=== PATIENT | female | born 1990 | race Caucasian/White ===

== ENCOUNTER 2017-07-20 22:53 | Inpatient (IN) ==
[2017-07-20] MEDS ORDERED: Ondansetron 4 MG/2 ML VIAL IVP PRN (22:56)
[2017-07-20] MEDS ORDERED: Famotidine 20 MG/2 ML VIAL IVP PRN (22:56)
[2017-07-20] MEDS ORDERED: Naloxone 0.4 MG/ML INJ IVP PRN (22:56)
[2017-07-20] MEDS ORDERED: Penicillin G Potassium 5,000,000 UNIT in 0.9 % Sodium Chloride Mini Bag 100 ML IVPB ONE (22:58)
[2017-07-20 23:48] LABS: Basophils # 0.1 K/mcL (0.0-0.2); Basophils % 0.4 %; Eosinophils # 0.2 K/mcL (0.0-0.6); Eosinophils % 1.1 %; Hematocrit 37.6 % (35.3-44.9); Hemoglobin 12.4 g/dL (11.5-15.4); Immature Granulocytes % 1.6 % (0-4); Lymphocytes # 3.3 K/mcL (0.6-4.6); Lymphocytes % 21.6 %; Mean Corpuscular Hemoglobin 27.3 pg (28.0-33.3); Mean Corpuscular Volume 82.8 fL (83.0-100.0); Mean Platelet Volume 9.9 fL (9.4-12.4); Monocytes # 1.1 K/mcL (0.0-1.3); Monocytes % 6.9 %; Neutrophils # 10.5 K/mcL (1.6-8.9); Platelet Count 336 K/mcL (140-400); Red Blood Count 4.54 M/mcL (3.82-4.97); Segmented Neutrophils % 68.4 %
--- NOTE | 2017-07-20 23:50 | OB/GYN History & Physical ---
Date of Encounter: 07/20/17 Time of Encounter: 23:48 Assessment and Plan (1) 39 weeks gestation of Current visit: Yes Status: Acute Patient admitted for delivery (2) Group B streptococcal infection during Current visit: Yes Status: Acute GBS prophylaxis started on admission History of Present Illness Chief complaint: Scheduled IOL HPI: Ms. Spaulding is a 27 year old female at 39w0d presents to labor and delivery for scheduled IOL. Patient reports +FM and irregular contractions. Patient denies LOF or vaginal bleeding. Patient's has been uncomplicated. Patient has medical history of Tachycardia and has been seen during by cardiology. Blood type: O+, Rubella: Immune, Hep B: Nonreactive, GBS: Positive. GBS prophylaxis started. Past Med Surg Social Fam HX - Past Medical History Source: patient Medical history: other Psychiatric history: no psych history - Past Surgical History Surgical History: cholecystectomy - Social History Smoking Status: Never smoker Smokeless Tobacco Status: No Alcohol use: none Drug use: none Occupational status: employed Current living situation: Home - Independent Activity Level: Independent ambulation Recent Out of Country Travel Within the Last 8 Weeks: No Exposure or Possible Exposure to Illness During Travel: No - Family History Mother Family Member Ethnicity: Non- Living Status: Still Living Hx Family Cardiac Disorders: No Hx Family Respiratory Disorders: No Hx Family Cancer: No Hx Family GI Disorders: No Hx Family Endocrine Disorder: No Hx Family Neuromuscular Disorders: No Hx Family Neurologic Disorders: No Hx Family HEENT Disorders: No Hx Family Autoimmune Disorders: No Obstetrical History - Pregnancies : 1 Para: 0 Term: 0 : 0 Ab's: 0 Livin Medications and Allergies Levocetirizine Dihydrochloride 5 mg PO DAILY 07/14/17 [History] Metoprolol 25 mg PO BID 07/14/17 [History] Montelukast [Singulair] 10 mg PO DAILY 07/14/17 [History] #108/Iron,Carbonyl/FA 1 tab PO DAILY 07/14/17 [History] Ranitidine HCl [Zantac] 150 mg PO DAILY 07/14/17 [History] 3 Allergy/AdvReac Type Severity Reaction Status Date / Time hydrocodone Allergy Itching Verified 07/20/17 23:19 Review of System OB - Constitutional Constitutional ROS IM: no chills, no fatigue, no fever(s), no headache(s) - Cardiovascular Cardiovascular: no chest pain, no lightheadedness, no palpitations, no rapid heart rate, no syncope - Respiratory Respiratory: no cough, no dyspnea - Gastrointestinal Gastrointestinal: no abdominal pain, no cramping, no diarrhea, no heartburn, no vomiting - Genitourinary Genitourinary: no abnormal vaginal bleeding, no dysuria, no flank pain, no urinary frequency, no vaginal discharge, no vaginal odor, no vaginal pruritis Exam - Vital Signs Vital signs: Initial Vital Signs Pulse Resp BP 101 16 113/78 07/20/17 23:05 07/20/17 23:05 07/20/17 23:05 - Constitutional Constitutional: well developed, well nourished, no acute distress, average body habitus - HEENT HEENT: Normocephaly, Mucus Membranes Moist - Neck Neck exam: full ROM, supple - Lungs Respiratory exam: CTAB - Cardiovascular Cardiovascular exam: RRR, +S1, +S2 - Abdomen Abdomen: Present: bowel sounds normal, gravid, non tender - Extremities Extremities exam: full ROM, normal capillary refill, normal inspection Deep Tendon Reflex Grade: 2+ Normal - Vagina Vagina: Present: normal moisture - Cervix Dilation: 2 Effacement: 80 Station: -2 - Uterus Uterus exam: Present: normal size, normal contour - Anus/Rectum Anus/Rectum: Present: normal perianal skin - Comments Comments: FHR 135 bpm moderate variability +15x15 accels no decels noted. CAt. 1 tracing. Contractions irregular. Results All other labs normal. - VTE Reasons for not Prescribing Prophylaxis: Treatment not Indicated - Low risk for VTE
[2017-07-20] MEDS: Ringers Solution, Lactated 1,000 ML IVC SCH (23:52)
[2017-07-20] MEDS: Penicillin G Potassium 2,500,000 UNIT in D5% in Water 100 ML IVPB SCH (23:52)
--- NOTE | 2017-07-21 00:13 | Anesthesia Evaluation PreOp ---
Date of Encounter: 07/21/17 Time of Encounter: 23:42 - Past History Planned Operation: vaginal del, , G1 induction 39wk Cardiac History: Arrhythmia (tachycardia managed on metoprolol, METs>4 without comp,) Pulmonary History: Denies Any Significant HX TREE SURGEON History: Denies Any Significant HX Other Medical History: Denies Any Significant HX Anesthesia History: No Prior Anesthetic Complications, Past Anesthesia Alcohol Use: none Drug use: none Medications and Allergies Levocetirizine Dihydrochloride 5 mg PO DAILY 07/14/17 [History] Metoprolol 25 mg PO BID 07/14/17 [History] Montelukast [Singulair] 10 mg PO DAILY 07/14/17 [History] #108/Iron,Carbonyl/FA 1 tab PO DAILY 07/14/17 [History] Ranitidine HCl [Zantac] 150 mg PO DAILY 07/14/17 [History] 3 Allergy/AdvReac Type Severity Reaction Status Date / Time hydrocodone Allergy Itching Verified 07/20/17 23:19 Anesthesia Results - Labs 07/20/17 23:40 Anesthesia Exam - HEENT Pupil (Motor): Pupils equal Mallampati: II Teeth: Normal Oral Opening: Greater than 3 - TREE SURGEON LOC: Oriented TREE SURGEON Motor: Normal RUE, Normal LUE, Normal RLE, Normal LLE, Normal Face TREE SURGEON Sensory: Normal: RUE, LUE, RLE, LLE, Face - Cardiac Rhythm: Regular Murmur: None - Pulmonary Breath Sounds: bilateral Clear Respiratory Effort: Symmetrical Anesthesia Assess/Plan ASA Score: 2 Modified Karol Scale for Level of Consciousness: Cooperative, oriented, and tranquil Anesthetic Plan: General, Regional Monitoring Plan: Standard Monitors
[2017-07-21 00:16] LABS: Amphetamine Screen,Urine Negative ng/mL (Cutoff=1000); Barbiturate Screen,Urine Negative ng/mL (Cutoff=200); Benzodiazepines Screen,Urine Negative ng/mL (Cutoff=200); Cannabinoid Screen,Urine Negative ng/mL (Cutoff = 50); Cocaine Screen,Urine Negative ng/mL (Cutoff= 300); Opiate Screen,Urine Negative ng/mL (Cutoff=300); Phencyclidine Screen,Urine Negative ng/mL (Cutoff=25)
[2017-07-21] MEDS ORDERED: miSOPROStol 100 MCG TABLET PO STA (00:50)
[2017-07-21] MEDS ORDERED: *HR* Nalbuphine 20 MG/ML AMPUL IVP PRN (01:37)
[2017-07-21] MEDS: Penicillin G Potassium 2,500,000 UNIT in D5% in Water 100 ML IVPB SCH ×3 (04:18→12:53)
[2017-07-21] MEDS ORDERED: Oxytocin 20 units/ LR 1000 mL 20 UNIT/1,000 ML BAG IVC SCH ×2 (06:45→17:51)
[2017-07-21] MEDS ORDERED: Epidural Premix (fent/bupiv) 110 ML EP ONE ×2 (06:52→12:49)
--- NOTE | 2017-07-21 07:45 | Anesthesia Procedures ---
Date of Encounter: 07/21/17 Time of Encounter: 07:43 Procedures: Anesthesia - Epidural/Spinal Patient ID/Chart reviewed: Yes Patient examined: Yes OB Eval: Gestational age: 39 OB Eval: : 1 OB Eval: Hx Para: 0 OB Eval: Dilated at (cm): 4 OB Eval: Contractions: Non-stressed pattern Consent Obtained: Yes Supplemental Oxygen: None/Room Air Site Prep: Aseptic Technique, Sterile prep and drape, 0.5% Chlorhexidine/Alcohol Patient position: upright Local Anesthetic: Lidocaine 1% Amount of Local Anesthetic used: 3 Touhy Needle Gauge: 18 Touhy Needle Depth (cm): 7 Catheter Depth at Skin (cm): 15 Test Dose (1.5% Lido + Epi): Volume given (mls): 3 Test Dose Result: Negative Loading Dose: Other: 10 cc from solution Loading Dose Administered: Thru Touhy Needle Infusion Med: 0.125% Bupivacaine w/ 2 mcg/ml Fentanyl Infusion Rate (mls/hr): 15 (pcea 5 cc q15") Catheter Secured in Place: Tegaderm Interspace Used: L3-L4 Loss of Resistance (NATHANIEL): Yes Blood: No CSF: No Paresthesia: No Procedure: aseptic, heme in first cath, level lower clear, sam well, effective Vitals + FHT's: see nsg note
--- NOTE | 2017-07-21 08:18 | OB Labor Progress Note ---
Date of Encounter: 07/21/17 Time of Encounter: 08:15 Labor Progress Note - Subjective Subjective: Patient resting comfortably with epidural in place. Patient denies any pain at this time. POC discussed with patient. - Cervix Cervix: 7/90/-1 - Heart Tones Heart Tones: 135 bpm moderate variability +15x15 accels no decels noted - [place]: 1-3 min apart - Interventions Interventions: SVE, AROM moderate amount of clear fluid. IUPC placed without difficulty. Patient tolerated well. - Plan Plan: Continue labor management. Will start Pitocin if needed
[2017-07-21] MEDS ORDERED: Ondansetron 4 MG/2 ML VIAL IVP ONE (10:18)
[2017-07-21] MEDS ORDERED: *HR* FentaNYL (PF) 100 MCG/2 ML VIAL EP ONE (12:32)
[2017-07-21] MEDS ORDERED: *HR* Ropivacaine/PF 0.2% 10 ML AMPUL EP ONE (12:32)
--- NOTE | 2017-07-21 12:34 | Anesthesia Progress Note ---
Date of Encounter: 07/21/17 Time of Encounter: 12:34 Anesthesia Note - Note Note: 07/21/17 12:33 epidural re dose fentanyl 100 mcg rop 0.2% 5cc
[2017-07-21] MEDS ORDERED: *HR* Ropivacaine/PF 0.2% 10 ML AMPUL ONE (12:36)
[2017-07-21] MEDS ORDERED: *HR* FentaNYL (PF) 100 MCG/2 ML VIAL ONE (12:37)
[2017-07-21] MEDS: Ringers Solution, Lactated 1,000 ML IVC SCH ×2 (12:53→19:21)
--- NOTE | 2017-07-21 13:13 | OB Labor Progress Note ---
Date of Encounter: 07/21/17 Time of Encounter: 13:07 Labor Progress Note - Subjective Subjective: Patient resting in bed on right side with peanut ball. Patient recently had an epidural bolus. Early decels with variability noted. Patient repositioned, IV bolus, Pitocin turned off and O2 mask on. Discussed Plan of care with patient. Patient denies any questions or concerns. - Cervix Cervix: 7/100/0 - Heart Tones Heart Tones: 135 bpm moderate variability early decels noted. - [place]: 3-4 min apart - Interventions Interventions: SVE, repositioned, Pitocin off, IV bolus and O2 mask - Plan Plan: Continue labor management. Dr. John notified
--- NOTE | 2017-07-21 16:41 | OB/GYN Procedure Note ---
Delivery - Delivery Date: 07/21/17 Provider: Mima Alcaraz Intrapartum events: none Delivery induction: AROM, oxytocin, griffith, misoprostol Delivery monitor: external FHT, external uterine, internal uterine Anesthesia: epidural Estimated Blood Loss: 150 - Infant (s) Infant A Delivery Date: 07/21/17 Infant Delivery Time: 16:09 Presentation: vertex Position: DANICA Route of delivery: Gender: Male Viability: Viable Pounds: 6 Ounces: 9 at 1 minute: 8 at 5 mins: 9 Shoulder Dystocia: not encountered Specimens collected: cord blood Placenta: spontaneous Cord: 3 umbilical vessels - Repair Episiotomy: none Laceration Description: Periurethral (hemostatic) - Complications Delivery complications: none Delivery comments: At patient's bedside. Patient reports feeling pressure. SVE anterior rim noted patient pushed with one contractions and anterior rim easily reduced. Patient continued to push with contractions. Under maternal effort patient spontaneously delivered a viable male infant over an intact perineum. No nuchal , no shoulder dystocia or meconium was encountered. was placed on maternal abdomen. Cord was clamped and cut after pulsation ceased. Cord blood was collected. Placenta delivered spontaneously and intact. Both mother and stable in LDR for 2 hour recovery. - Disposition Mom disposition: stable in LDR [place] disposition: stable in LDR
[2017-07-21] MEDS ORDERED: Acetaminophen 325 MG TABLET PO PRN (17:51)
[2017-07-21] MEDS ORDERED: Benzocaine/Menthol 56 GM AEROSOL SPRAY TP PRN (17:51)
[2017-07-21] MEDS: Ibuprofen 600 MG TABLET PO PRN (18:15)
[2017-07-22 08:43] VITALS: BP 119/77
[2017-07-22] MEDS: Ibuprofen 600 MG TABLET PO PRN (08:53)
[2017-07-22] MEDS ORDERED: Prenatal Vit/FA 1 EACH TABLET PO SCH (09:00)
--- NOTE | 2017-07-22 09:59 | Discharge Summary ---
Date of Encounter: 07/22/17 Time of Encounter: 09:56 - Discharge Diagnosis (1) Vaginal delivery Priority: Primary Status: Acute Comments: Pt meeting milestones. She desires discharge home today. She does c/ o intermittent cramping on her right side. She just had motrin. Will continue to monitor and await improvement of pain before discharge. - Discharge Medications Prescriptions: Ibuprofen [Motrin] 600 mg PO Q6HR PRN #30 tablet PRN Reason: Cramping Docusate [Colace] 100 mg PO BID #30 capsule Home Medications: Levocetirizine Dihydrochloride 5 mg PO DAILY 07/14/17 [History] Metoprolol 25 mg PO BID 07/14/17 [History] Montelukast [Singulair] 10 mg PO DAILY 07/14/17 [History] #108/Iron,Carbonyl/FA 1 tab PO DAILY 07/14/17 [History] Docusate [Colace] 100 mg PO BID #30 capsule 07/22/17 [Rx] Ibuprofen [Motrin] 600 mg PO Q6HR PRN #30 tablet 07/22/17 [Rx] Allergies/Adverse Reactions: 3 Allergy/AdvReac Type Severity Reaction Status Date / Time hydrocodone Allergy Itching Verified 07/20/17 23:19 Data Procedures and tests throughout hospitalization: Laboratory Tests 07/20/17 07/20/17 23:40 23:40 WBC 15.3 H RBC 4.54 Hgb 12.4 Hct 37.6 MCV 82.8 L MCH 27.3 L MCHC 33.0 RDW 14.0 Plt Count 336 MPV 9.9 Immature Gran % 1.6 Seg Neutrophils % 68.4 Lymphocytes % 21.6 Monocytes % 6.9 Eosinophils % 1.1 Basophils % 0.4 Neutrophils # 10.5 H Lymphocytes # 3.3 Monocytes # 1.1 Eosinophils # 0.2 Basophils # 0.1 Urine Opiates Screen Negative Ur Barbiturates Screen Negative Ur Phencyclidine Scrn Negative Ur Amphetamines Screen Negative U Benzodiazepines Scrn Negative Urine Cocaine Screen Negative U Marijuana (THC) Screen Negative Date of admission: 07/20/17 22:53 Primary care physician: PCP NONE Discharging clinician: Emma Cantu Anticipated date of discharge: 07/22/17 - Patient Status Disposition: Home, Self-Care Condition: Good Functional capacity at discharge: independent ambulation Overall status at discharge: patient is progressing back to baseline - Discharge Instructions Follow Up With: NONE,PCP [Primary Care Provider] - Mima Alcaraz, CNM [Non-Partnered Physician] - - Diet and Activity Activity: increase activity as tolerated Hospital Course Reason for admission: induction of labor Delivery: Episiotomy: none Laceration: other (periurethral) Other procedures: none complications: none Discharge diagnosis: IUP at term delivered [place] baby: male Hospital course: - Delivery Date: 07/21/17 Provider: Mima Alcaraz Intrapartum events: none Delivery induction: AROM, oxytocin, griffith, misoprostol Delivery monitor: external FHT, external uterine, internal uterine Anesthesia: epidural Estimated Blood Loss: 150 - (s) A Infant Delivery Date: 07/21/17 Infant Delivery Time: 16:09 Presentation: vertex Position: DANICA Route of delivery: Gender: Male Viability: Viable Pounds: 6 Ounces: 9 at 1 minute: 8 at 5 mins: 9 Shoulder Dystocia: not encountered Specimens collected: cord blood Placenta: spontaneous Cord: 3 umbilical vessels - Repair Episiotomy: none Laceration Description: Periurethral (hemostatic) Time Attestation: Total time spent providing and/or coordinating discharge services: Time Spent: Less than 30 minutes Exam - Constitutional Vitals: Temp Pulse Resp BP Pulse Ox 97.9 F 90 14 119/77 96 07/22/17 08:42 07/22/17 08:42 07/22/17 08:42 07/22/17 08:42 07/22/17 08:42 General appearance IM: A&O X 3, pleasant, no acute distress - Respiratory Respiratory exam: Present: CTAB - Cardiovascular Cardiovascular exam IM: Present: RRR, +S1, +S2 - GI/Abdominal GI/Abdominal exam IM: soft - Rectal Rectal exam: deferred - External exam: normal external exam Uterine Tone: Firm Uterus Position: At Umbilicus - Extremities Exam Extremities exam IM: Present: normal inspection - Neurological Exam Neurological exam: normal gait, oriented X3 - Psychiatric Additional comments: Pt reports good mood
== END 2017-07-22 17:30 | disposition home or self-care (01) | DRG 775 ==
LOC: 1NENULAB 22:53 → 1NENUOBS 07-21 18:45
PROVIDERS: ADMIT Advanced Practice Midwife; ATTEND Advanced Practice Midwife